=== PATIENT | male | born 1970 | race African-American/Black ===

== ENCOUNTER 2025-04-27 18:10 | Inpatient (IN) | payer BC ==
[~2025-04-27] VITALS: Ht 185.4 cm; Wt 108.2 kg
--- NOTE | 2025-04-27 19:43 | DVH ---
EXAM: XY CHEST PORTABLE TECHNIQUE: Single frontal chest radiograph CLINICAL HISTORY: DVT protocol COMPARISON: None Findings/Impression: Frontal chest radiograph demonstrates no acute osseous or superficial soft tissue abnormalities. The trachea is midline. The cardiac silhouette and mediastinum are within normal limits. Low lung volumes with bronchovascular crowding No pneumothorax, pleural effusions, or consolidations.
[2025-04-27 19:58] LABS: Hematocrit 39.1 % (41.0-53.0); Hemoglobin 13.3 g/dL (13.5-17.5); Mean Corpuscular Hemoglobin 29.0 pg (28.0-32.0); Mean Corpuscular Volume 84.9 fL (80.0-100.0); Nucleated Red Blood Cells % 0.0 %
[2025-04-27 19:59] VITALS: BP 128/65; PULSE 72; RESP 16; TEMP 98.1; O2SAT 97
--- NOTE | 2025-04-27 20:01 | DVH ---
EXAM: US BILAT LOWER DVT Clinical History: DVT RULE OUT Comparison: None Technique: Duplex Doppler evaluation of the deep venous systems of both lower extremities from the common femora l veins to the popliteal veins including color Doppler and spectral/pulsed waveform analysis was perf ormed. Findings: No visible intraluminal venous thrombus. No evidence of incompressibility or abnormal color or spectr al Doppler flow visualized in the deep bilateral lower extremity veins. Proximal greater saphenous ve ins are grossly unremarkable. Impression: 1. No sonographic evidence of deep venous thrombosis throughout the bilateral lower extremities from the popliteal veins to the common femoral veins.
[2025-04-27 20:17] LABS: INR 1.06 (0.9-1.15); Partial Thromboplastin Time 28.5 SEC (24.5-34.5); Prothrombin Time 11.2 sec (9.3-11.8)
[2025-04-27] MEDS: MORPHINE SULFATE INJ 2 MG/ml SYRG IV PRN (20:33)
[2025-04-27] MEDS: ONDANSETRON HCL 4 MG/2 ML VIAL IV PRN (20:33)
[2025-04-27 21:00] VITALS: BP 144/82; PULSE 72; RESP 18; TEMP 98; O2SAT 98
--- NOTE | 2025-04-27 21:11 | DVHHP2 ---
History of Present Illness Reason for Visit: Shortness for breath History of Present Illness This is a 54-year-old gentleman came to the hospital as a direct admit from outpatient urgent care for shortness for breath and possible pulmonary embolism. Apparently has been having shortness for breath for few days and he is evaluat ed at [facility] urgent Care. Patient had a CT angiogram of the chest apparently showed bilateral peripheral pulmonary emboli. Therefore he received one dose of Eliquis and advised to be admitted to the hospital for further evaluation and management. Currently he complains of pleuritic chest discomfort and some mild shortness for breath. No dizziness lightheadedness. No headache. Other review of systems reviewed normal. Family History: Hypertension Smoke: No ALCOHOL: occassional Lives: with Family Review of Systems Review of Systems No fevers chills or sweats. No headache dizziness or lightheadedness. Other review of systems reviewed normal. Allergies: Coded Allergies: Shellfish Allergy (Verified Allergy, Severe, 04/27/25) Medications Current Medications Medications Dose Ordered Sig/Jude Route Start Time Stop Time Status Last Admin Dose Admin Heparin Sodium/ Dextrose 250 ml @ 20 mls/hr [id number] IV 04/27/25 18:51 Morphine Sulfate 2 mg Q2HPRN PRN IV 04/27/25 19:45 04/27/25 20:33 2 MG Acetaminophen/ Hydrocodone Bitart 1 tab Q4HPRN PRN PO 04/27/25 19:45 Ondansetron HCl 4 mg Q4HPRN PRN IV 04/27/25 19:45 04/27/25 20:33 4 MG Exam Vital Signs Vital Signs Date Time Temp Pulse Resp B/P (MAP) Pulse Ox O2 Delivery O2 Flow Rate FiO2 04/27/25 20:33 80 18 152/76 Exam Well developed, well-nourished gentleman comfortable without any significant cardiopulmonary distress at present. HEENT neck supple no JVD pupils equal round reactive to light. Heart regular rate and rhythm S1 plus S2 without audible murmurs or gallops. Lungs fair air movement. Chest tube will expansion. No rales or wheezes noted. Abdomen is soft nontender nondistended positive bowel sounds. Extremities no edema positive distal pedal pulses. Labs/Xrays Labs Test 04/27/25 19:29 Range/Units White Blood Count 8.4 4.4-10.8 10^3/uL Red Blood Count 4.60 4.5-5.90 10^6/uL Hemoglobin 13.3 L 13.5-17.5 g/dL Hematocrit 39.1 L 41.0-53.0 % Mean Corpuscular Volume 84.9 80.0-100.0 fL Mean Corpuscular Hemoglobin 29.0 28.0-32.0 pg Mean Corpuscular Hemoglobin Concent 34.1 32.0-36.0 g/dL Red Cell Distribution Width 14.4 H 11.8-14.3 % Platelet Count 173 140-450 10^3/uL Mean Platelet Volume 7.4 6.9-10.8 fL Neutrophils (%) (Auto) 84.9 H 37.0-80.0 % Lymphocytes (%) (Auto) 7.8 L 10.0-50.0 % Monocytes (%) (Auto) 6.9 0.0-12.0 % Eosinophils (%) (Auto) 0.1 0.0-7.0 % Basophils (%) (Auto) 0.3 0.0-2.0 % Neutrophils # (Auto) 7.1 1.6-8.6 10 ^3/uL Lymphocytes # (Auto) 0.7 0.4-5.4 10 ^3/uL Monocytes # (Auto) 0.6 0-1.3 10 ^3/uL Eosinophils # (Auto) 0 0-0.8 10 ^3/uL Basophils # (Auto) 0 0-0.2 10 ^3/uL Nucleated Red Blood Cells 0.0 % Prothrombin Time 11.2 9.3-11.8 sec Prothrombin Time INR 1.06 0.9-1.15 Activated Partial Thromboplast Time 28.5 24.5-34.5 SEC SEPSIS Sepsis Screen Physician Orders Platelet Monitoring (04/27/25 18:42) Vte Protocol Initiated (04/27/25 18:42) Heparin Per Standardized Proce (04/27/25 18:42) Discontinue All Im Injections (04/27/25 18:42) Platelet Monitoring (04/27/25 18:42) Vte Protocol Initiated (04/27/25 18:42) Heparin Per Standardized Proce (04/27/25 18:42) Discontinue All Im Injections (04/27/25 18:42) Heparin Drip/D5w 100units/Ml (04/27/25 18:51) Bilat Lower Dvt (04/27/25 18:51) Chest Portable (04/27/25 18:51) Electrocardigram (04/27/25 18:51) Cardiac Diet-2gna,Lofat,Lochol (04/28/25 Breakfast) Morphine Sulfate Injection (04/27/25 19:45) Hydrocodone-Acet 5/325mg Tab ([place] 5/32 (04/27/25 19:45) Ondansetron Hcl (Zofran) (04/27/25 19:45) Heparin Per Pharmacy Protocol (04/27/25 19:52) Basic Metabolic Panel (04/27/25 20:58) * Cardiology Consult (04/27/25 21:08) Echo 2d Mode Cardiac Dop (04/27/25 21:08) Vital Signs Date Time Temp Pulse Resp B/P (MAP) Pulse Ox O2 Delivery O2 Flow Rate FiO2 04/27/25 20:33 80 18 152/76 Laboratory Tests Test 04/27/25 19:29 White Blood Count 8.4 10^3/uL (4.4-10.8) Medications Medications Dose Ordered Sig/Jude Route Start Time Stop Time Status Last Admin Dose Admin Morphine Sulfate 2 mg Q2HPRN PRN IV 04/27/25 19:45 04/27/25 20:33 2 MG Ondansetron HCl 4 mg Q4HPRN PRN IV 04/27/25 19:45 04/27/25 20:33 4 MG Assessment/Plan Assessment/Plan Acute pulmonary embolism We will admit to telemetry floor. Start him on IV heparin drip for DVT PE protocol for pharmacy. 2D echocardiogram. Cardiac consultation. We will initiate a hypercoagulable workup as appropriate. Otherwise continue rest of supportive care and treatment. Follow clinical management per clinical course and recommendations from the consultants. Discussed with the patient regarding care plan at bedside. Plan discussed with: Patient, Spouse My Orders Orders - GENNARO GRACE MD Procedure Category Date Status Time Platelet Monitoring [facility] 04/27/25 In Process 18:42 Vte Protocol Initiated [facility] 04/27/25 In Process 18:42 Heparin Per [facility] 04/27/25 In Process Standardized Proce 18:42 Discontinue All Im [facility] 04/27/25 In Process Injections 18:42 Platelet Monitoring [facility] 04/27/25 In Process 18:42 Vte Protocol Initiated [facility] 04/27/25 In Process 18:42 Heparin Per [facility] 04/27/25 In Process Standardized Proce 18:42 Discontinue All Im [facility] 04/27/25 In Process Injections 18:42 Heparin Drip/D5w PHA 04/27/25 In Process 100units/Ml 18:51 Bilat Lower Dvt US 04/27/25 Resulted 18:51 Chest Portable XY 04/27/25 Resulted 18:51 Electrocardigram EKG 04/27/25 Logged 18:51 Cardiac DIET 04/28/25 Transmitted Diet-2gna,Lofat,Lochol Breakfast Morphine Sulfate PHA 04/27/25 In Process Injection 19:45 Hydrocodone-Acet PHA 04/27/25 In Process 5/325mg Tab ([place] 19:45 Ondansetron Hcl PHA 04/27/25 In Process (Zofran) 19:45 Heparin Per Pharmacy [facility] 04/27/25 In Process Protocol 19:52 Basic Metabolic Panel LAB 04/27/25 Logged 20:58 * Cardiology Consult CONS 04/27/25 Transmitted 21:08 Echo 2d Mode Cardiac US 04/27/25 Transmitted DOP 21:08 GENNARO GRACE MD Apr 27, 2025 21:11
[2025-04-27] MEDS: HEPARIN SODIUM (PORCINE) 5000 UNITS/ML 1ML VIAL IV ONE (21:27)
[2025-04-27] MEDS: HEPARIN DRIP/D5W 100UNITS/ML 250 ML IV SCH (21:28)
[2025-04-27 21:58] LABS: Chloride 102 mmol/L (98-107); Potassium 4.1 mmol/L (3.5-5.1); Sodium 139 mmol/L (136-145)
[2025-04-27 21:59] LABS: Anion Gap 8 (5-15); Calcium 10.0 mg/dL (8.7-10.4); Carbon Dioxide 29 mmol/L (20-31)
[2025-04-27] MEDS ORDERED: METO25TA93 PO (22:02)
[2025-04-27] MEDS ORDERED: EVOL140I2 SC (22:02)
[2025-04-27] MEDS ORDERED: PRED10TA PO (22:03)
[2025-04-27 22:04] LABS: BUN/Creatinine Ratio 11.5 (10.0-20.0); Blood Urea Nitrogen 13 mg/dL (9-23); Glucose 105 mg/dL (74-106)
[2025-04-27 22:43] VITALS: PULSE 72; RESP 16; O2SAT 97
[2025-04-28] VITALS (8 sets, daily range): BP systolic 129–148; BP diastolic 77–97; PULSE 66–135; RESP 16–22; TEMP 97.3–98.8; O2SAT 91–99
[2025-04-28 03:42] LABS: Hematocrit 41.5 % (41.0-53.0); Hemoglobin 14.1 g/dL (13.5-17.5); Mean Corpuscular Hemoglobin 29.0 pg (28.0-32.0); Mean Corpuscular Volume 85.7 fL (80.0-100.0); Nucleated Red Blood Cells % 0.0 %
[2025-04-28 04:06] LABS: INR 1.08 (0.9-1.15); Prothrombin Time 11.4 sec (9.3-11.8)
[2025-04-28 04:19] LABS: Partial Thromboplastin Time 90.9 SEC (24.5-34.5)
[2025-04-28] MEDS: HYDROcodone-ACET 5/325MG TAB PO PRN (04:53)
[2025-04-28] MEDS: HEPARIN DRIP/D5W 100UNITS/ML 250 ML IV SCH (05:20)
--- NOTE | 2025-04-28 08:30 | ECG ---
[facility] Test Date: 2025-04-27 Test Time: 21:02:40 Pat Name: ALLI NUR Department: Respiratoy Room: [facility]3T A Gender: M [employer] Information Architect: AT : 1970 Requested By: GENNARO GRACE Order Number: [id number] Reading MD: Raghu Lyle Measurements Intervals [place] Rate: 75 P: 10 [place]: 157 QRS: 34 QRSD: 95 T: 3 QT: 356 QTc: 398 Interpretive Statements Sinus rhythm Electronically Signed On 05-02-2025 18:38:14 PDT by Raghu Lyle Please click the below link to view image of tracing.
--- NOTE | 2025-04-28 12:23 | DVHINCON2 ---
DATE OF CONSULTATION: 04/28/2025 REFERRING PHYSICIAN: Odin Zimmer MD CONSULTING PHYSICIAN: Isrrael Cardozo MD INDICATION: Pulmonary embolism. HISTORY OF PRESENT ILLNESS: The patient is a 54-year-old male with history of paroxysmal AFib and hypertension who was admitted to the hospital with a diagnosis of pulmonary embolism. The patient has been having worsening shortness of breath for the past several days and also chest pain left-sided, worse with deep breath. The patient had CT angio chest as an outpatient which revealed bilateral pulmonary embolism and admitted for further management. The patient still complaining of pleuritic chest pain, left lower chest. The patient also has some shortness of breath. Denies any orthopnea, paroxysmal nocturnal dyspnea, leg swelling. Denies any cough. PAST MEDICAL HISTORY: * Hypertension. * Atrial fibrillation. MEDICATIONS: Per med rec. ALLERGIES: SHELLFISH. PHYSICAL EXAMINATION: GENERAL: Alert and awake, in no form of cardiopulmonary distress. VITAL SIGNS: Blood pressure 146/84. Pulse 76 per minute. Saturation 97%. HEENT: No carotid bruits. No jugular venous distention. CHEST: Bilateral air entry, clear. CARDIOVASCULAR: Precordial and carotid pulses palpable. Normal S1, S2. Regular rate and rhythm. EXTREMITIES: No peripheral edema. DIAGNOSTIC DATA: White count 7, hemoglobin 14, platelet is 174. Sodium 139, potassium 4.1, creatinine is 1.1. ASSESSMENT: * Acute bilateral pulmonary embolism. * Pleuritic chest pain. * History of hypertension. * History of AFib. RECOMMENDATIONS: * Continue anticoagulation with heparin. * Transition to Eliquis. * Monitor electrolytes. * Pain control. * We will review echo once completed. * Continue personnel monitor for now. Thank you for allowing me to participate in care of this patient. MD ANA LAURA Graham/DULCE MARIA/NINOSKA TID: [id number] RECEIPT: [id number]
[2025-04-28 13:55] LABS: INR 1.07 (0.9-1.15); Partial Thromboplastin Time 61.3 SEC (24.5-34.5); Prothrombin Time 11.3 sec (9.3-11.8)
[2025-04-28] MEDS: IBUPROFEN 800 MG TAB PO SCH (14:00)
--- NOTE | 2025-04-28 16:27 | DVHSR ---
APPROVED REPORT EXAM: Two-dimensional and M-mode echocardiogram with Doppler and color Doppler. Mitral Valve MitralMitral Stenosis E/A ratio0.02D MVAcm2 LEFT VENTRICLE The left ventricle is normal size. There is normal left ventricular wall thickness. The left ventricle is normal in structure and function. Left ventricle systolic function is normal. The Ejection Fraction is 55-60%. No regional wall motion abnormalities noted. RIGHT VENTRICLE The right ventricle is normal size. There is normal right ventricular wall thickness. The right ventricular systolic function is normal. ATRIA The left atrium size is normal. The right atrium size is normal. The interatrial septum is intact with no evidence for an atrial septal defect. MITRAL VALVE The mitral valve is normal in structure and function. There is no evidence of mitral valve prolapse. There is no mitral valve stenosis. There is no mitral valve regurgitation noted. PULMONIC VALVE The pulmonary valve is normal in structure and function. There is no pulmonic valvular regurgitation. There is no pulmonic valvular stenosis. TRICUSPID VALVE The tricuspid valve is normal in structure and function. There is no tricuspid valve regurgitation noted. There is no tricuspid valve prolapse or vegetation. There is no tricuspid valve stenosis. AORTIC VALVE The aortic valve is normal in structure and function. No aortic regurgitation is present. There is no aortic valvular stenosis. There is no aortic valvular vegetation. GREAT VESSELS The aortic root is normal in size. PERICARDIAL EFFUSION There is a no pericardial effusion. Conclusion There is normal left ventricular wall thickness. The left ventricle is normal in structure and function. Left ventricle systolic function is normal. The Ejection Fraction is 60%. Right heart is normal in size. There is trace tricuspid regurgitation. There is a no pericardial effusion.
[2025-04-28 19:36] LABS: INR 1.08 (0.9-1.15); Partial Thromboplastin Time 67.6 SEC (24.5-34.5); Prothrombin Time 11.4 sec (9.3-11.8)
--- NOTE | 2025-04-28 20:31 | DVHPN2 ---
Subjective Still complaining of pleuritic chest discomfort in the left lower rib cage region. On IV heparin drip for pulmonary embolism. Ultrasound of the legs negative for DVT. Changes from previous H/P or p: No Changes Objective Vitals Vital Signs Date Time Temp Pulse Resp B/P (MAP) Pulse Ox O2 Delivery O2 Flow Rate FiO2 04/28/25 20:16 79 18 146/77 04/28/25 13:00 98.8 99 98.8 04/28/25 08:00 Nasal Cannula* 2 28 Intake/Output Intake and Output 04/28/25 07:00 Intake Total 800 ml Balance 800 ml Intake Oral 800 ml # Voids 3 Exam Pleasant gentleman comfortable in bed without significant distress. HEENT neck supple no JVD. Heart regular rate and rhythm S1-S2. Lungs fair air movement degraded breath sounds in the bases. Abdomen soft nontender positive bowel sounds. Extremities no edema positive pulses. Medications Current Medications Medications Dose Ordered Sig/Jude Route Start Time Stop Time Status Last Admin Dose Admin Morphine Sulfate 2 mg Q2HPRN PRN IV 04/27/25 19:45 04/28/25 20:16 2 MG Acetaminophen/ Hydrocodone Bitart 1 tab Q4HPRN PRN PO 04/27/25 19:45 04/28/25 16:19 1 TAB Ondansetron HCl 4 mg Q4HPRN PRN IV 04/27/25 19:45 04/28/25 20:13 4 MG Heparin Sodium/ Dextrose 250 ml @ 17 mls/hr [id number] IV 04/28/25 05:15 04/28/25 05:20 17 MLS/HR Famotidine 20 mg Q12HR PO 04/28/25 22:00 Ibuprofen 800 mg TID PO 04/28/25 14:00 Clonidine HCl 0.1 mg Q6HP PRN PO 04/28/25 12:00 Laboratory Results Laboratory Tests 04/27/25 21:31 04/28/25 03:33 Chemistry Test 04/27/25 21:31 Calcium Level 10.0 mg/dL (8.7-10.4) Coagulation Test 04/28/25 03:33 04/28/25 13:18 04/28/25 19:00 Prothrombin Time 11.4 sec (9.3-11.8) 11.3 sec (9.3-11.8) 11.4 sec (9.3-11.8) Prothrombin Time INR 1.08 (0.9-1.15) 1.07 (0.9-1.15) 1.08 (0.9-1.15) Activated Partial Thromboplast Time 90.9 SEC (24.5-34.5) *H 61.3 SEC (24.5-34.5) H 67.6 SEC (24.5-34.5) H Protein C Antigen Pending Protein S Antigen Pending Free Protein S Antigen Pending Anti-Thrombin III Antigen Pending Factor V Leiden Mutation Pending Assessment/Plan Assessment/Plan Acute pulmonary embolism Etiology for pulmonary embolism unclear at present. I will send hypercoagulable workup. Continue IV heparin drip overnight we will transitioned to Eliquis in the morning. Meantime follow 2D echocardiogram results and recommendations from Cardiology if any. Otherwise continue rest of supportive care and treatment. Encouraged incentive spirometry and ambulation. Discussed with the nurse as well as patient/family at bedside regarding care plan. Plan discussed with: Patient My Orders Orders - GENNARO GRACE MD Procedure Category Date Status Time * Cardiology Consult CONS 04/27/25 Transmitted 21:08 Stat Ptt 6 Hr After NICOLE 04/28/25 In Process Heparin In 03:30 Hepatitis B Surface LAB 04/27/25 In Process Antigen 04:00 Hepatitis C Antibody LAB 04/27/25 In Process 04:00 Heparin Drip/D5w PHA 04/28/25 In Process 100units/Ml 05:15 Heparin Per Pharmacy NICOLE 04/28/25 In Process Protocol 04:34 Echo 2d Mode Cardiac US 04/28/25 Resulted DOP 21:08 Admit ADMIT 04/28/25 Transmitted 08:18 Factor V Leiden LAB 04/28/25 In Process Mutation 09:45 Protein C Antigen LAB 04/28/25 In Process 09:45 Protein S-Antigen LAB 04/28/25 In Process Total & Free 09:45 Antithrombin Iii LAB 04/28/25 In Process Antigen 09:45 Incentive Spirometry ORDERS 04/28/25 Transmitted Q 1hr 11:56 Famotidine Tablet PHA 04/28/25 In Process (Pepcid Tablet) 22:00 Ibuprofen Tablet PHA 04/28/25 In Process (Motrin Tablet) 14:00 Clonidine Hcl Tablet PHA 04/28/25 In Process (Catapres Tablet) 12:00 Complete Blood Count LAB 04/29/25 Verified 04:00 Heparin Per Pharmacy N[facility] 04/28/25 In Process Protocol 14:17 PTPTT LAB 04/29/25 Verified 01:00 Heparin Per Pharmacy [facility] 04/28/25 In Process Protocol 20:11 Date of Service: Apr 28, 2025 Billing Provider: GENNARO GRACE MD Common Visit Codes: [id number] INP/OBS CARE(MOD) GENNARO GRACE MD Apr 28, 2025 20:31
[2025-04-28] MEDS: FAMOTIDINE 20 MG TAB PO SCH (22:06)
[2025-04-29] VITALS (7 sets, daily range): BP systolic 143–146; BP diastolic 79–87; PULSE 63–97; RESP 17–18; TEMP 98.2–98.9; O2SAT 97–99
[2025-04-29 01:50] LABS: INR 1.07 (0.9-1.15); Partial Thromboplastin Time 58.8 SEC (24.5-34.5); Prothrombin Time 11.3 sec (9.3-11.8)
[2025-04-29 08:03] LABS: Hematocrit 38.4 % (41.0-53.0); Hemoglobin 12.9 g/dL (13.5-17.5); Mean Corpuscular Hemoglobin 28.9 pg (28.0-32.0); Mean Corpuscular Volume 86.0 fL (80.0-100.0); Nucleated Red Blood Cells % 0.1 %
[2025-04-29] MEDS: METOPROLOL SUCCINATE XL 50 MG TAB PO SCH (09:04)
[2025-04-29 13:18] LABS: Hepatitis B Surface Antigen Negative (Negative)
[2025-04-29 13:36] LABS: Hepatitis C Antibody Negative (Negative)
[2025-04-29] MEDS: LACTULOSE 20Gm/30ML SOLN PO PRN (21:58)
[2025-04-29] MEDS: APIXABAN 5 MG TAB PO SCH (21:58)
--- NOTE | 2025-04-29 22:22 | DVHPN2 ---
Progress Note - Dictate Date Seen: Apr 29, 2025 Medical Necessity Reason Pt with a Central, PICC or Fol: No Subjective Comfortable in bed. Feels better. Pleuritic pain is improving. vital signs Vital Sign Date Time Temp Pulse Resp B/P (MAP) Pulse Ox O2 Delivery O2 Flow Rate FiO2 04/29/25 20:00 97 18 97 Nasal Cannula* 2 28 04/29/25 12:54 98.9 146/82 (103) 98.9 Total Intake and Output 04/28/25 04/28/25 04/29/25 15:00 23:00 07:00 Intake Total 800 ml 1100 ml Balance 800 ml 1100 ml medications Current Medications Medications Dose Ordered Sig/Jude Route Start Time Stop Time Status Last Admin Dose Admin Morphine Sulfate 2 mg Q2HPRN PRN IV 04/27/25 19:45 04/29/25 09:05 2 MG Acetaminophen/ Hydrocodone Bitart 1 tab Q4HPRN PRN PO 04/27/25 19:45 04/29/25 14:10 1 TAB Ondansetron HCl 4 mg Q4HPRN PRN IV 04/27/25 19:45 04/29/25 14:11 4 MG Famotidine 20 mg Q12HR PO 04/28/25 22:00 04/29/25 21:58 20 MG Clonidine HCl 0.1 mg Q6HP PRN PO 04/28/25 12:00 Metoprolol Succinate 25 mg DAILY PO 04/29/25 10:00 04/29/25 09:04 25 MG Apixaban 10 mg BID PO 04/29/25 22:00 05/06/25 10:01 04/29/25 21:58 10 MG Apixaban 5 mg BID PO 05/06/25 22:00 Lactulose 30 ml Q6HPRN PRN PO 04/29/25 14:30 04/29/25 21:58 30 ML objective HEENT neck. Heart regular rate and rhythm. Lungs fair air movement without wheezing. Abdomen soft positive bowel sounds. Extremities no edema. laboratory and microbiology Laboratory Tests 04/29/25 06:57 04/27/25 21:31 Test 04/27/25 21:31 Range/Units Serum Glucose 105 74-106 mg/dL Assessment/Plan Pleuritic chest pain is improving. He is feeling better. Hypercoagulable blood tests were sent. We will transition him from IV heparin drip to Eliquis starting this evening. Otherwise continue rest of supportive care and treatment. Follow clinical management per clinical course. Discussed with the patient and nurse at bedside regarding care plan when evaluated Him earlier today. Problems(with codes): (1) Pulmonary embolism Plan discussed with: Patient GENNARO GRACE MD Apr 29, 2025 22:22
[2025-04-30 08:00] VITALS: PULSE 64; PULSE 80; RESP 18; O2SAT 97
[2025-04-30 08:42] VITALS: BP 140/76; PULSE 77; RESP 16; TEMP 98.8; O2SAT 92
[2025-04-30] MEDS ORDERED: APIX5TAB PO (12:48)
--- NOTE | 2025-04-30 14:00 | DVHDS2 ---
Discharge Summary Date of Admission Apr 27, 2025 at 18:12 Date of Discharge: Apr 30, 2025 Labs/Diagnostic Data: Laboratory Results Test 04/29/25 06:57 04/29/25 01:24 04/28/25 13:18 04/27/25 21:31 White Blood Count 7.2 10^3/uL (4.4-10.8) Red Blood Count 4.46 10^6/uL (4.5-5.90) Hemoglobin 12.9 g/dL (13.5-17.5) Hematocrit 38.4 % (41.0-53.0) Mean Corpuscular Volume 86.0 fL (80.0-100.0) Mean Corpuscular Hemoglobin 28.9 pg (28.0-32.0) Mean Corpuscular Hemoglobin Concent 33.6 g/dL (32.0-36.0) Red Cell Distribution Width 14.4 % (11.8-14.3) Platelet Count 175 10^3/uL (140-450) Mean Platelet Volume 7.5 fL (6.9-10.8) Neutrophils (%) (Auto) 78.8 % (37.0-80.0) Lymphocytes (%) (Auto) 9.2 % (10.0-50.0) Monocytes (%) (Auto) 11.5 % (0.0-12.0) Eosinophils (%) (Auto) 0.3 % (0.0-7.0) Basophils (%) (Auto) 0.2 % (0.0-2.0) Neutrophils # (Auto) 5.7 10 ^3/uL (1.6-8.6) Lymphocytes # (Auto) 0.7 10 ^3/uL (0.4-5.4) Monocytes # (Auto) 0.8 10 ^3/uL (0-1.3) Eosinophils # (Auto) 0 10 ^3/uL (0-0.8) Basophils # (Auto) 0 10 ^3/uL (0-0.2) Nucleated Red Blood Cells 0.1 % Prothrombin Time 11.3 sec (9.3-11.8) Prothrombin Time INR 1.07 (0.9-1.15) Activated Partial Thromboplast Time 58.8 SEC (24.5-34.5) Sodium Level 139 mmol/L (136-145) Potassium Level 4.1 mmol/L (3.5-5.1) Chloride Level 102 mmol/L (98-107) Carbon Dioxide Level 29 mmol/L (20-31) Anion Gap 8 (5-15) Blood Urea Nitrogen 13 mg/dL (9-23) Creatinine 1.13 mg/dL (0.700-1.30) Glomerular Filtration Rate Calc 77 mL/min (>90) BUN/Creatinine Ratio 11.5 (10.0-20.0) Serum Glucose 105 mg/dL (74-106) Calcium Level 10.0 mg/dL (8.7-10.4) Hepatitis B Surface Antigen Negative (Negative) Hepatitis C Antibody Negative (Negative) Other Laboratory Tests 04/29/25 06:57 04/27/25 21:31 Brief Hx & Hospital Course: The patient is a 54-year-old male with history of paroxysmal AFib and hypertension who was admitted to the hospital with a diagnosis of pulmonary embolism. The patient has been having worsening shortness of breath for the past several days and also chest pain left-sided, worse with deep breath. The patient had CT angio chest as an outpatient which revealed bilateral pulmonary embolism and admitted for further management. The patient still complaining of pleuritic chest pain, left lower chest. The patient also has some shortness of breath. Denies any orthopnea, paroxysmal nocturnal dyspnea, leg swelling. Denies any cough. He is admitted and evaluated by bulkhead carpenter. Patient treated with IV heparin transitioned to oral Eliquis for acute pulmonary embolism. The etiology of his PE is unclear. Hyperkalemia we will workup with a factor five labs sent and they are pending. He is advised to follow up with the results with the primary care physician. Otherwise his echocardiogram did not reveal any acute pathology. He is oxygenating normally on room air. His pleuritic chest pain has improved. Therefore he has been discharged home in stable condition. Patient verbalized understanding his hospital diagnosis, treatment she received, discharge medications, discharge instructions and agree with the follow up plan of care as outlined. Operations or Procedures ORDER NUMBER(s): [id number], ACCESSION NUMBER(s): [id number] APPROVED REPORT EXAM: Two-dimensional and M-mode echocardiogram with Doppler and color Doppler. Mitral Valve Mitral Mitral Stenosis E/A ratio 0.0 2D MVA cm2 Conclusion There is normal left ventricular wall thickness. The left ventricle is normal in structure and function. Left ventricle systolic function is normal. The Ejection Fraction is 60%. Right heart is normal in size. There is trace tricuspid regurgitation. There is a no pericardial effusion. SIGNED BY: ROCKY TSE MD SIGNED DATE/TIME: 04/28/25 1271 Condition at Discharge: Stable Final Diagnosis/Problems List Acute bilateral pulmonary embolism. * Pleuritic chest pain. * History of hypertension. * History of AFib. Discharge Disposition: Home Discharge Instruct/Medications Diet: Cardiac 2g Na,low cholest Activity: No Restrictions, As Tolerated Medications: eliquis 10mg po bid x 1week then 5mg po bid Scheduled Apixaban Base (Eliquis), 10 MG PO BID, (Reported) Metoprolol Succinate (Metoprolol Succinate Er), 1 TAB PO DAILY, (Reported) Miscellaneous Medications Evolocumab (Repatha Sureclick), [place], (Reported) Discontinued Medications Prednisone (Prednisone), 1 TAB PO BID, (Reported) Discharge Statement: "Patient was advised to return to the ER or call 911 if any headaches, dizziness, shortness of breath, chest pain, abdominal pain, bleeding, fevers, or worsening of medical condition. Patient was counseled about treatment plan, medications, possible side effects, patientverbalized understanding. All questions were answered to the best of my ability. This discharge took greater then 30 minutes in planning, reviewing documentation, counseling the patient, and discussing with other team members." ASSESSMENT ASSESSMENT Assessment Date of Service: Apr 30, 2025 Billing Provider: GENNARO GRACE MD Common Visit Codes: 43681-OXL/OBS DISCH DAY <30MIN GENNARO GRACE MD Apr 30, 2025 14:00
[2025-05-02 01:06] LABS: Proten S Antigen Total 101 % (60-150)
[2025-05-06] MEDS ORDERED: APIXABAN 5 MG TAB PO SCH (22:00)
== END 2025-04-30 13:45 | disposition home or self-care (01) | DRG 176 ==
LOC: TELE-WESTW 18:12
PROVIDERS: ADMIT Hospitalist; ATTEND Hospitalist
DX: I26.99 Other pulmonary embolism without acute cor pulmonale (principal); I48.0 Paroxysmal atrial fibrillation; I10 Essential (primary) hypertension; Z82.49 Family history of ischemic heart disease and other diseases of the circulatory system; Z91.013 Allergy to seafood
CPT/HCPCS: 36415; 71045; 80048; 81241; 85025; 85301; 85302; 85305; 85306; 85610; 85730; 86803; 87340; 93005; 93306; 93970; G0378; J2405